=== PATIENT | male | born 1990 | race Caucasian/White ===

== ENCOUNTER → 2017-08-07 | Outpatient (CLI) | payer OTHER, BC ==
--- NOTE | 2017-08-07 15:55 | DIAGNOSTIC IMAGING REPORT ---
MRI OF THE CERVICAL SPINE WITHOUT CONTRAST CLINICAL HISTORY: Cervical radiculopathy. Neck pain radiating into right upper extremity. Right arm numbness and tingling. COMPARISON: Cervical spine radiograph July 01, 2017. TECHNIQUE: Utilizing a 1.5 Matilde magnet and dedicated coil, multiplanar, multiecho imaging of the cervical spine was performed without IV contrast. FINDINGS: Alignment of the cervical spine is anatomic. Vertebral body heights are maintained. There is no marrow edema or marrow replacement. No intracanalicular mass or fluid collection is present. Cervical cord signal and caliber are normal. Paravertebral soft tissues are unremarkable. C2-C3: The central canal and neural foramen are patent. C3-C4: The central canal and neural foramen are patent. C4-C5: The central canal and neural foramen are patent. C5-C6: The central canal and neural foramen are patent. C6-C7: The central canal and neural foramen are patent. C7-T1: The central canal and neural foramen are patent. IMPRESSION: Unremarkable MRI of the cervical spine. Patent central canal and neural foramen. No disc herniation. Normal cervical cord signal and caliber. Electronically signed by: Gigi Valdez M.D. 08/07/2017 3:54 PM Dictated Date/Time: 08/07/2017 3:47 PM
== END | disposition home or self-care (01) ==
LOC: C.MRIBC 14:54
PROVIDERS: ATTEND Orthopaedic Surgery Orthopaedic Surgery of the Spine
DX: M54.12 Radiculopathy, cervical region (principal)